=== PATIENT | male | born 1955 | race Caucasian/White ===

== ENCOUNTER 2016-09-07 07:30 | Inpatient (IN) ==
--- NOTE | 2016-09-06 21:06 | Discharge Summary ---
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 Status: Acute (2) HLD (hyperlipidemia) Priority: Secondary Status: Chronic Qualifiers: Hyperlipidemia type: unspecified Qualified Code(s): E78.5 - Hyperlipidemia , unspecified (3) HTN (hypertension) Priority: Secondary Status: Chronic Qualifiers: Hypertension type: essential hypertension Qualified Code(s): I10 - Essential (primary) hypertension - Discharge Medications Home Medications: Aspirin [Adult Low Dose Aspirin EC] 81 mg PO DAILY 07/15/15 [History] Atorvastatin Calcium [Lipitor] 20 mg PO HS 07/15/15 [History] Duloxetine HCl [Cymbalta] 60 mg PO DAILY 07/15/15 [History] Esomeprazole Magnesium [Nexium] 40 mg PO DAILY PRN 07/15/15 [History] Gabapentin [Neurontin] 300 mg PO TID 07/15/15 [History] Metoprolol Succinate 100 mg PO DAILY 07/15/15 [History] OxyCODONE Immed Rel [Roxicodone 5 MG] 5 - 10 mg PO Q6HR PRN #40 tablet 09/06/16 [Rx] Losartan/HCTZ [Hyzaar 50-12.5 Tablet] 1 tab PO DAILY 09/07/16 [History] Milk Thistle Seed Extract [Milk Thistle] 200 mg PO DAILY 09/07/16 [History] Oxycodone HCl/Acetaminophen [Percocet 5-325 mg Tablet] 1 tab PO TID PRN [History] Allergies/Adverse Reactions: Allergies No Known Allergies Allergy (Verified 07/15/15 06:25) Primary care physician: PCP NO - Patient Status Disposition: Home, Self-Care Condition: Good - Discharge Instructions Follow Up With: NO,PCP [Primary Care Provider] - Additional Instructions: Discharge Instructions: Total Shoulder Please call [facility] ([phone]), your Primary Care Physician, or report to the Emergency Room if you have any of the following symptoms: Nausea, vomiting, fever greater that 101.5, swelling, chest pain, shortness of breath, increased pain/redness/drainage/odor for your incision site, numbness/ tingling, or any other concerning symptoms. ACTIVITY: Always keep your arm in the sling. Do not raise your arm away from your body. Do not use your arm to help with getting in or out of bed. No weight bearing permitted. Only perform those exercises given to you by your therapist. MEDICATIONS: Upon discharge resume your home medications. Take all the medications as prescribed. Take a stool softener if taking narcotic pain medications. Stool softeners are only effective if you drink enough fluids. Drink 6-8 glass of water or fluids a day, unless this is not allowed for another health problem. Despite using stool softeners, if you haven't had a bowel movement in 3 days, please switch to a gentle laxative. Gentle laxatives are sold over the counter. You should have a bowel movement within 24 hours, if not call the office. You will be discharged from the hospital with a prescription for pain medication. You are encouraged to decrease the use of narcotic pain medication as tolerated. Should you require a refill, please call the office. [facility] prescribes narcotic pain medication for only 4-6 weeks after surgery. If you require pain medication beyond this time period, you may be referred to your Primary Care Physician or to the Pain Clinic for further evaluation. Plan ahead for refills on pain medication as many narcotics either need to be picked up at the office or mailed. It is best to call 48-72 hours in advance of needing a prescription refill so you don't run out of medication. To help control the post-operative pain, you may take NSAIDs (Aleve,Advil, Motrin, ibuprofen, naprosyn) or Tylenol as prescribed on the bottle in addition to the pain medication. ANTICOAGULATION (blood thinners): Continue your Aspirin, Lovenox or Coumadin as prescribed to help prevent a blood clot in the leg or in the lungs. As long as your incision remains dry and you tolerate the NSAIDs (Aleve, Advil, Motrin, ibuprofen, naprosyn), it is OK to use the NSAIDS while you are taking your anticoagulation medication. Should your incision start to drain, stop the NSAID and contact our office. Common symptoms of blood clot in the legs include: localized pain, swelling, calf tenderness, redness or discoloration of the skin. Blood clot in the lung symptoms include: shortness of breath, rapid pulse, sweating, and chest pain that worsens with deep breathing, coughing up blood, lightheadedness, and feelings of anxiety. If you experience any of these symptoms notify your physician immediately, go to the emergency room, or if having trouble breathing , call 911. WOUND CARE: Leave the dressing on for 7 days. You may change the dressing if it becomes saturated greater than 50%. You can shower but not a tub bath or submerge your incision in water. Wash your hands with antibacterial soap, rinse and dry prior to any wound care. If you have sarah the visiting nurse or rehab facility can remove the stapes 10-14 days after surgery and place steri -strips across the wound. Leave the steri-strips in place until they fall off on their won. You may let water from the shower run on top of the steri- stirips. If you do not have a visiting nurse or rehab facility, you will need to return to the office at 10-14 days for the sarah to be removed. FOLLOW-UP: Please follow up with your surgeon in the orthopedic clinic, as scheduled - Hospital Course Hospital course: Mr. 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 Mac is a 61 year old male The patient had an uneventful postoperative course. They received antibiotics and physical therapy and were discharged in stable condition. There will follow -up in the office in 2 weeks. - Time Spent with Patient Total time spent providing and/or coordinating discharge services:
--- NOTE | 2016-09-07 07:45 | History & Physical Report ---
Date of Encounter: 09/07/16 Time of Encounter: 07:45 24 Hour HP Update - Instructions Instructions: If the History and Physical is less than 30 days old and was completed prior to A.M. admission and or procedure and has NOT been updated on calendar day of procedure please complete this update prior to performing procedure. - Update Patient reports changes in Medical Condition: No Changes in assessment/condition: No Changes in Medication: No Preop tests/diagnostics Reviewed: Yes Surgery Remains Indicated: Yes Consent for Planned Operative Procedure(s) Verified: Yes - Pre-Operative Checklist Preoperative Checklist Indicated: No Prophylactic Antibiotic Ordered: Yes Is VTE Prophylaxis Indicated?: Yes
[2016-09-07] MEDS ORDERED: CeFAZolin Pre 3,000 MG/100 ML 3,000 MG/100 ML BAG IVPB ONE (08:14)
[2016-09-07] MEDS ORDERED: Lidocaine -MPF 1% 2 ML VIAL ID ONE (08:14)
[2016-09-07] MEDS ORDERED: Ringers Solution, Lactated 1,000 ML IVC SCH ×2 (08:15→12:20)
[2016-09-07] MEDS ORDERED: Famotidine 20 MG/2 ML VIAL IVP ONE (08:59)
--- NOTE | 2016-09-07 09:02 | Anesthesia Evaluation PreOp ---
Date of Encounter: 09/07/16 Time of Encounter: 09:00 - Past History Planned Operation: Left Shoulder Replacement Revision Cardiac History: HTN, Hyperlipidemia Pulmonary History: Denies Any Significant HX HEALTH SCIENCE SPECIALIST History: Denies Any Significant HX Other Medical History: GERD Anesthesia History: No Prior Anesthetic Complications, Problems (Sore throat) Alcohol Use: none Drug use: marijuana Medications and Allergies Aspirin [Adult Low Dose Aspirin EC] 81 mg PO DAILY 07/15/15 [History] Atorvastatin Calcium [Lipitor] 20 mg PO HS 07/15/15 [History] Duloxetine HCl [Cymbalta] 60 mg PO DAILY 07/15/15 [History] Esomeprazole Magnesium [Nexium] 40 mg PO DAILY PRN 07/15/15 [History] Gabapentin [Neurontin] 300 mg PO TID 07/15/15 [History] Metoprolol Succinate 100 mg PO DAILY 07/15/15 [History] OxyCODONE Immed Rel [Roxicodone 5 MG] 5 - 10 mg PO Q6HR PRN #40 tablet 09/06/16 [Rx] Losartan/HCTZ [Hyzaar 50-12.5 Tablet] 1 tab PO DAILY 09/07/16 [History] Milk Thistle Seed Extract [Milk Thistle] 200 mg PO DAILY 09/07/16 [History] Oxycodone HCl/Acetaminophen [Percocet 5-325 mg Tablet] 1 tab PO TID PRN [History] Allergies No Known Allergies Allergy (Verified 07/15/15 06:25) - Meds/Allergy Pre-op Review Medications Reviewed: Yes Allergies Reviewed: Yes Beta Blockers on Current Med List: Yes ( today 529) Anesthesia Results - Imaging EKG: report reviewed (SR) Anesthesia Exam O2 Sat Height 1.85 m Height 1.85 m Height 1.85 m Weight 119.748 kg Weight 119.748 kg Weight 119.748 kg O2 Sat by Pulse Oximetry 96 O2 Sat by Pulse Oximetry 96 Vital Signs Temp Pulse Resp BP Pulse Ox 97.9 F 61 18 112/69 96 09/07/16 07:55 09/07/16 07:55 09/07/16 07:55 09/07/16 07:55 09/07/16 07:55 Height: 6'1 Weight: 264 lbs NPO (# of Hours): MN Pain Scale: 0 - HEENT Pupil (Motor): Pupils equal, EOMI Mallampati: III Teeth: Normal Oral Opening: Less than or equal to 3 - HEALTH SCIENCE SPECIALIST LOC: Oriented HEALTH SCIENCE SPECIALIST Motor: Normal RUE, Normal LUE, Normal RLE, Normal LLE, Normal Face HEALTH SCIENCE SPECIALIST Sensory: Normal: RUE, LUE, RLE, LLE, Face - Cardiac Rhythm: Regular Murmur: None JVD: No Carotid Bruit: No - Pulmonary Breath Sounds: bilateral Clear Respiratory Effort: Symmetrical Anesthesia Assess/Plan ASA Score: 2 Modified Atilio Scale for Level of Consciousness: Cooperative, oriented, and tranquil Anesthetic Plan: General, Regional Monitoring Plan: Standard Monitors Recovery Plan: PACU (Discussed GA and RA, agrees to proceed)
[2016-09-07] MEDS ORDERED: Ondansetron 4 MG/2 ML VIAL ONE (09:15)
[2016-09-07] MEDS ORDERED: Lidocaine -MPF 4% 5 ML AMPUL ONE (09:15)
[2016-09-07] MEDS ORDERED: *HR* Midazolam HCl 2 MG/2 ML VIAL ONE (09:15)
[2016-09-07] MEDS ORDERED: Dexamethasone 4 MG/ML VIAL ONE (09:15)
[2016-09-07] MEDS ORDERED: Lidocaine -MPF 2% 2 ML VIAL ONE (09:15)
[2016-09-07] MEDS ORDERED: *HR* FentaNYL (PF) 100 MCG/2 ML VIAL ONE (09:15)
[2016-09-07] MEDS ORDERED: *HR* Succinylcholine 200 MG/10 ML VIAL IVP ONE (09:15)
[2016-09-07] MEDS ORDERED: *HR* Propofol 200 MG/20 ML VIAL IVP ONE (09:15)
[2016-09-07 09:19] LABS: Basophils % 0.4 %; Eosinophils # 0.1 K/mcL (0.0-0.6); Eosinophils % 1.5 %; Hematocrit 40.6 % (37.5-50.1); Immature Granulocytes % 0.2 % (0-4); Lymphocytes # 1.6 K/mcL (0.6-4.6); Lymphocytes % 17.3 %; Mean Corpuscular HGB Conc 34.5 g/dL (31.6-35.5); Mean Corpuscular Hemoglobin 31.1 pg (28.0-33.3); Mean Corpuscular Volume 90.2 fL (83.0-100.0); Mean Platelet Volume 9.5 fL (9.4-12.4); Monocytes % 10.3 %; Neutrophils # 6.6 K/mcL (1.6-8.9); Platelet Count 267 K/mcL (140-400); Red Cell Distribution Width 13.2 % (11.5-14.5); Segmented Neutrophils % 70.3 %
[2016-09-07] MEDS ORDERED: Albuterol 2.5 MG/3 ML NEBULIZER IH ONE (09:29)
[2016-09-07 09:33] LABS: BUN/Creatinine Ratio 20 (6-26); Blood Urea Nitrogen 17 mg/dL (8-26); Calcium 9.9 mg/dL (8.6-10.8); Carbon Dioxide 26 mEq/L (19-29); Chloride 102 mEq/L (98-109); Glucose 120 mg/dL (70-99); Osmolality,Calculated 287 (280-300); Sodium 137 mEq/L (136-145); eGFR For African Americans > 60 (> 60); eGFR For Non-African Americans > 60 (> 60)
[2016-09-07 09:34] LABS: Potassium 4.4 mEq/L (3.5-4.5)
[2016-09-07] MEDS ORDERED: *HR* Labetalol 100 MG/20 ML MDV IVP PRN (09:37)
[2016-09-07] MEDS ORDERED: Dexamethasone 4 MG/ML VIAL IVP ONE (09:37)
[2016-09-07] MEDS ORDERED: *HR* HYDROmorphone (PF) 1 MG/ML SYRINGE IVP PRN ×2 (09:37→12:20)
[2016-09-07] MEDS ORDERED: Ondansetron 4 MG/2 ML VIAL IVP ONE (09:37)
[2016-09-07] MEDS ORDERED: ROPIVACAINE HCL/PF 0.5% 30 ML VIAL ONE (09:49)
[2016-09-07] MEDS ORDERED: Tetracaine/PF 20 MG/2 ML AMPUL SPINA ONE (09:49)
[2016-09-07] MEDS ORDERED: Bupivacaine/Clonidine Syringe 1 EACH SYRINGE ONE (09:50)
--- NOTE | 2016-09-07 10:05 | Anesthesia Procedures ---
Date of Encounter: 09/07/16 Time of Encounter: 09:00 Procedures: Anesthesia - Nerve Block Procedure Date: 09/07/16 Time: 09:50 Pre-op Diagnosis: Left Total Shoulder Surgical Procedure: Left Total Shoulder Revision Checklist: Correct Patient Identifier Correct side: Left Blood Thinner: No Monitor Applied: EKG, BP, Pulse Oximetry Supplemental Oxygen via Nasal Cannula (L/min): 2 Sedation: Versed (mg): 2 Sedation: Fentanyl (mcg): 100 Indication: Post Op Analgesia Pre-op Neuro Deficits: No Block Type: Supraclavicular Catheter placed: No Depth at skin (cm): 2 Sterile Technique: Yes Ultrasound used: Yes Anatomy identified: Yes Visual spread of Local: Yes Neuro Stimulation: No Blood on Needle Aspiration: No Smooth Injection of Local: Yes Pain with Injection of Local: No Prep: Chlorhexadine Needle: 22 x 50 mm Stimuplex Local: 0.25% Bupivicaine w/Clonidine 20 mcg/cc, Tetracaine (20), Ropivacaine ( 0.5%) Volume (cc): 30cc Number of Attempts: 1 Complications: None/effective block Vitals: Vital Signs/O2 Sat/Glucose, Most Current Temp Pulse Resp BP Pulse Ox 09/07/16 10:03 70 16 133/78 96 09/07/16 09:51 66 16 116/102 97 09/07/16 09:44 68 16 137/97 97 09/07/16 08:38 97.9 F 61 18 112/69 96 09/07/16 07:55 97.9 F 61 18 112/69 96
[2016-09-07] MEDS ORDERED: *HR* Phenylephrine 10 MG/ML VIAL ONE (10:46)
--- NOTE | 2016-09-07 11:20 | Orthopedic Operative Note ---
Date of procedure: 09/07/16 Pre-op diagnosis: Aseptic loosening right glenoid component reverse shoulder Post-op diagnosis: same Procedure: Procedure: Right Revision Total Shoulder replacement reverse Estimated blood loss: 200 cc Hardware: Arthrex: Large glenoid baseplate, 42 lateralized sphere, 2 4.5 screws and one 6.5 screw 42 central metaphysis 12 metal spacer 3 poly-spacer Procedural Notes: Gross loosening glenoid component with screw fracture for 4.5 screws no loosening of humeral component. Operative procedure: The patient was brought to the operating room and placed on the operating room table. The patient was placed in the modified beachchair position. All pressure points were padded appropriately. And the head was stabilized in the neutral position. The operative extremity was prepped and draped in the sterile surgical fashion. The patient received IV antibiotics prior to skin incision. A standard deltopectoral approach was made to the operative shoulder. Incision was made through the skin and subcutaneous tissue, through the old incision, hemo stasis was obtained with Bovie cautery. Using careful blunt dissection the cephalic vein was identified and mobilized medially. The deltopectoral interval was developed and the clavipectoral fascia was incised. An extensive debridement was performed, and the shoulder was dislocated. The humeral poly- spacer followed by the 2 metal spacers were removed without incident. Soft tissues removed from around the proximal portion of the humeral stem this was well fixed. Attention was then turned to the glenoid component. The glenoid sphere was removed from the loose base plate. The screws were removed 6.5 was without fracture, the 2 4.5 screw broken. One of the broken screws inferior was removed. The cluster was irrigated and dried and fibrinous debris was removed. Prior to this cultures were obtained and Gram stain. Gram stain was negative for bacteria. The glenoid pin was repositioned was overreamed. The glenoid baseplate was secured over DBX which was used to pack the bone defect. It was fixed with 2 4.5 screws and one central 6.5 screw. The 42 lateralized glenoid sphere was seated and secured. Humerus was redislocated 42 central metaphysis was engaged. Trial reduction revealed excellent motion and stability with a 12 metal spacer and a 3 poly-spacer. Trials were removed real metal and poly-was seated and secured. Shoulder had excellent motion and excellent stability. The deep tissue was irrigated with pulse irrigation deltopectoral interval was closed with #2 PDS suture . Superficially the subcutaneous tissue was closed with 0 PDS suture, the skin was closed with Dermabond. The patient placed sterile dressing, postoperative brace extubated and transferred to the recovery room in stable condition. Anesthesia: GETA Surgeon: Rudy Yusuf General Sales Manager: Jo Ann Cotto Condition: stable Disposition: PACU
--- NOTE | 2016-09-07 12:03 | Anesthesia Evaluation Post Op ---
Date of Encounter: 09/07/16 Time of Encounter: 12:03 - Vital Signs Vital Signs: Vital Signs/O2 Sat, Most Current Temp Pulse Resp BP Pulse Ox 97.4 F L 72 16 139/94 96 09/07/16 11:57 09/07/16 11:57 09/07/16 11:57 09/07/16 11:57 09/07/16 11:57 - Lungs Lungs: Clear Ascult./Percussion - Airway Airway: Non-obstructed - Cardiovascular Regular Rate - Mental Status Mental Status: Alert & Oriented, Answers Appropriately - Pain Pain Scale: 0 Pain Scale used: Numeric (1 - 10) - Nausea Vomiting Nausea Vomiting: Not Present - Hydration Hydration: Ice chips, Has not voided - Discharge PostOp Status: Transfer Patient to floor
[2016-09-07] MEDS ORDERED: Sennosides 8.6 MG TABLET PO PRN (12:20)
[2016-09-07] MEDS ORDERED: Ondansetron 4 MG/2 ML VIAL IVP PRN (12:20)
[2016-09-07] MEDS ORDERED: Naloxone 0.4 MG/ML INJ IVP PRN (12:20)
[2016-09-07] MEDS ORDERED: *HR* OxyCODONE Immed Rel 5 MG TABLET PO PRN ×2 (12:20)
[2016-09-07] MEDS ORDERED: MOM Conc 10 ML UD.LIQ PO PRN (12:20)
[2016-09-07] MEDS ORDERED: Temazepam 15 MG CAPSULE PO PRN (12:20)
[2016-09-07] MEDS ORDERED: Acetaminophen 325 MG TABLET PO PRN (12:20)
[2016-09-07 14:15] LABS: Hematocrit 38.2 % (37.5-50.1); Hemoglobin 12.9 g/dL (12.9-16.9)
[2016-09-07] MEDS ORDERED: Gabapentin 300 MG CAPSULE PO SCH (15:00)
[2016-09-07] MEDS ORDERED: ceFAZolin 2,000 MG in D5% in Water 100 ML IVPB SCH (16:00)
[2016-09-07 16:12] VITALS: BP 126/78
[2016-09-07] MEDS ORDERED: *HR* Enoxaparin 30 MG/0.3 ML SYRINGE SQ SCH ×2 (18:00)
--- NOTE | 2016-09-08 06:54 | Electrocardiograph Report ---
[place] Test Date: 2016-09-07 Pat Name: Cruzito Mac Department: 106 Room: [facility] Gender: M [employer] Safety Police: ANGIE : 1955 Requested By: Logan Cooper Order Number: [id number] Reading MD: Radha Ray DO Measurements Intervals [place] Rate: 65 P: 31 SD: 177 QRS: 5 QRSD: 95 T: 10 QT: 392 QTc: 404 Interpretive Statements SINUS RHYTHM MINIMAL VOLTAGE CRITERIA FOR LVH, CONSIDER NORMAL VARIANT Electronically Signed On 09-08-2016 6:53:01 EDT by Radha Ray DO
[2016-09-08] MEDS ORDERED: MILK THISTLE SEED EXTRACT 200 MG PO SCH (09:00)
[2016-09-08] MEDS ORDERED: Losartan/HCTZ 50-12.5 TABLET PO SCH (09:00)
[2016-09-08] MEDS ORDERED: Aspirin Enteric Coated 81 MG Tablet PO SCH (09:00)
[2016-09-08] MEDS ORDERED: Metoprolol XL (24 HR) Succ 50 MG TAB.ER.24H PO SCH (09:00)
== END 2016-09-07 17:25 | disposition home or self-care (01) | DRG 483 ==
LOC: SAMDAY 07:30 → 3NENU 12:19
PROVIDERS: ADMIT Orthopaedic Surgery; ATTEND Orthopaedic Surgery